=== PATIENT | female | born 1945 | race Caucasian/White ===

== ENCOUNTER → 2017-02-09 | Outpatient (CLI) | payer MEDICARE ==
[~2017-02-09] MED LIST: ALBUTEROL17 GM INH; ALPRAZOLAM PO; ANTIVERT PO; CENTRUM SILVER PO; CYANOCOBAL1000 MCG/M INJ; DARVOCET-N 1001 TAB PO; DEXILANT60 MG PO; ESTRACE PO; ESTRACE1 M1 PO; HYDROCODONE-A1 UDTA3 PO; HYDROCODONE-APA1 T57 PO; HYDROMET SYRUP480 ML PO; LEVOTHROID100 MC1 PO; LEVSIN PO; LOMOTIL TABLET1 TAB PO; MEDI-MECLIZINE25 M1 PO; MOBIC PO; OXYBUTYNIN10 MG/BOTT PO; PAMELOR10 M1 PO; PAMELOR10 MG PO; PHENERGAN PO; RANITIDINE HCL150 M1 PO; SINGULAIR PO; SYNTHROID PO; TIROSINT100 MCG PO; TRAZODONE PO; TYLOX1 CAP 5/50 DOB; VICODIN 5-3001 EACH PO; VITAMIN B12; VITAMIN D1000 UNIT PO; ZEGERID40 MG/PKT PO; ZYRTEC PO
--- NOTE | ~2017-02-09 | CR63 ---
[facility] A Service [facility] RADIOLOGY TEXT RESULTS PATIENT: RAMÍREZ RAO LOCATION: [facility] : 43 UNIT #: [id number] AGE: [address]: Mili Beltran FLIGHT CONTROL SPECIALIST SEX: F ORDER DR: [id number] [address] [address] [id number] O MR#: [id number] Acc #: [id number] NAME: RAMÍREZ RAO : 1945 SEX: F STUDY DATE/TIME: 02/09/2017 16:00 UNIT: [facility] ROOM: STUDY DESCRIPTION: CR Chest 2 View Attending Physician: Mili Beltran A.P.R.N. Referring Physician: Mili Beltran A.P.R.N. Ordering Physician: Mili Beltran A.P.R.N. Primary Care Physician: Mili Beltran A.P.R.N. MEDICAL IMAGING REPORT This report is preliminary unless electronic signature is present. EXAM Two view chest HISTORY Chronic cough over the past 2 months. TECHNIQUE 2 views of the chest were obtained. FINDINGS Since the previous examination, the heart, lungs, mediastinum show no changes. No new focal infiltrates are seen. Heart size is normal. Vascular markings are normal and no pleural fluid is seen. No changes are seen when correlated with a chest CT from 09/27/2016. IMPRESSION No new infiltrates are seen since the recent chest CT 09/27/2016. Dictated by... Dada Terrazas M.D. THIS IS AN ELECTRONICALLY VERIFIED REPORT Dada Terrazas M.D. at 02/10/2017 4:55 PM RLF/maría TD: 02/09/2017 19:10 JOB #: [id number] MEDICAL IMAGING REPORT [facility] A Service [facility] RADIOLOGY TEXT RESULTS PATIENT: RAMÍREZ RAO LOCATION: [facility] : 43 UNIT #: [id number] AGE: [address]: Mili Beltran SEX: F ORDER DR: Page 1 of 1
== END | disposition home or self-care (01) ==
LOC: SRAD 15:54
DX: R05 Cough (principal)
CPT/HCPCS: 71020

== ENCOUNTER → 2017-05-15 | Outpatient (CLI) | payer MEDICARE ==
--- NOTE | ~2017-05-15 | CT57 ---
[facility] A Service of [facility] RADIOLOGY TEXT RESULTS PATIENT: RAMÍREZ RAO [facility] : 44 UNIT #: [id number] AGE: [address]: Brandy Cobos MD SEX: F ORDER DR: [id number] [facility] [address] [facility] [facility] [place], [place] [address] [id number] O MR#: [id number] Acc #: [id number] NAME: RAMÍREZ RAO : 1945 SEX: F STUDY DATE/TIME: 05/17/2017 UNIT: [facility] ROOM: STUDY DESCRIPTION: CT Chest Wo Cont Attending Physician: Brandy Cobos M.D. Referring Physician: Brandy Cobos M.D. Ordering Physician: Brandy Cobos M.D. Primary Care Physician: Mili Beltran A.P.R.N. MEDICAL IMAGING REPORT This report is preliminary unless electronic signature is present EXAM CT chest without contrast 05/15/2017 1358 hours HISTORY 72-year-old woman for followup of hilar lymphadenopathy and lung nodules seen on prior CT chest, 09/27/2016. No current chest complaints. COMPARISON Chest CT 09/27/2016, 05/20/2016 TECHNIQUE Helical noncontrasted images were obtained from the thoracic inlet through the adrenal glands. Sagittal and coronal reconstructions were performed. Total exam DLP 278 mGy-cm. This CT exam was performed with one or more of the following radiation dose reduction techniques: automatic exposure control, adjustment of mA and/or kV according to patient size, and iterative reconstruction. FINDINGS Images through the thoracic inlet demonstrate postop change of thyroidectomy. There is no thyroid nodule or adenopathy. Images through the chest demonstrate normal caliber aorta. Pulmonary arteries, cardiac chambers, pericardium are normal. There is no adenopathy. There is a small hiatal hernia unchanged. There is no pericardial or pleural fluid. The lungs demonstrate biapical scarring with a nodular appearance at the right apex, unchanged. There is underlying bronchiectasis which is fairly diffuse, but most prominent in the medial aspect of the lingula and the right middle lobe where there is some atelectasis, peribronchiolar wall thickening, and increased reticulonodular change in both the lingula and STS. [facility] A Service of [facility] & [facility] RADIOLOGY TEXT RESULTS PATIENT: RAMÍREZ RAO LOCATION: [facility] : 43 UNIT #: [id number] AGE: [address]: Brandy Cobos MD SEX: F ORDER DR: right middle lobe suggesting an element of inflammation currently. The lower lungs are clear. Findings could represent chronic bronchitis or atypical infection such as LORIE. Correlate clinically. Limited views through the upper abdomen demonstrate clips consistent with prior cholecystectomy. There is no adrenal mass. IMPRESSION 1. There is underlying mild, diffuse bronchiectasis, most prominent in the right middle lobe and lingula, where there is peribronchial wall thickening and interval increase in reticular tree-in-bud type densities associated with the areas of bronchiectasis, suggesting acute infection or increased infection from 09/27/2016. Findings could be related to chronic bronchitis; consider chronic aspiration or an atypical infection such as LORIE. 2. There is no dense airspace consolidation, adenopathy or mass. 3. Stable reticulonodular scarring at the apices. 4. Postop change of thyroidectomy and cholecystectomy. Dictated by... Haylie Hickey M.D. THIS IS AN ELECTRONICALLY VERIFIED REPORT Haylie Hickey M.D. at 05/17/2017 4:57 PM BANDAR/marisol TD: 05/17/2017 14:35 JOB #: [id number] MEDICAL IMAGING REPORT Page 1 of 1 COPY
== END | disposition home or self-care (01) ==
LOC: CCAT 12:51
DX: R59.0 Localized enlarged lymph nodes (principal); J47.9 Bronchiectasis, uncomplicated; J98.4 Other disorders of lung; E89.0 Postprocedural hypothyroidism; Z90.49 Acquired absence of other specified parts of digestive tract
CPT/HCPCS: 71250